=== PATIENT | male | born 1965 | race Caucasian/White ===

== ENCOUNTER 2020-12-25 12:26 | Outpatient (REF) | payer BC, SELFPAY ==
[2020-12-25 14:21] LABS: Alanine Aminotransferase 15 U/L (0-40); Alkaline Phosphatase 72 U/L (39-117); Anion Gap 14 (12-20); Aspartate Amino Transferase 14 U/L (5-37); Bilirubin Total 1.1 mg/dL (0.0-1.0); Blood Urea Nitrogen 15 mg/dL (9-16); Calcium 10.2 mg/dL (8.4-10.2); Carbon Dioxide 25 mmol/L (22-29); Chloride 101 mmol/L (96-108); Estimated Glomerular Filt Rate > 60; Glucose Random 91 mg/dL (60-115); Potassium 4.4 mmol/L (3.3-5.1); Sodium 136 mmol/L (135-145); Total Protein 7.8 g/dL (6.5-8.0)
[2020-12-25 14:44] LABS: Free T4 (Free Thyroxine) 1.03 ng/dL (0.71-1.85); Thyroid Stimulating Hormone 1.27 uIU/mL (0.32-4.0)
== END 2020-12-25 12:27 | disposition home or self-care (01) ==
LOC: HO.HMGCLDS 12:26
PROVIDERS: PCP Internal Medicine; Visit Provider Registered Nurse
DX: Z79.899 Other long term (current) drug therapy (principal)
CPT/HCPCS: 36415; 80053; 80178; 84439; 84443

== ENCOUNTER 2021-04-08 11:20 | Outpatient (REF) | payer BC, SELFPAY ==
[2021-04-08 14:20] LABS: Lithium 0.38 mmol/L (0.60-1.20)
[2021-04-08 14:38] LABS: Alanine Aminotransferase 12 U/L (0-40); Albumin Level 4.5 g/dL (3.5-5.0); Alkaline Phosphatase 70 U/L (39-117); Anion Gap 12 (12-20); Aspartate Amino Transferase 12 U/L (5-37); Bilirubin Total 0.6 mg/dL (0.0-1.0); Blood Urea Nitrogen 11 mg/dL (9-16); Calcium 9.9 mg/dL (8.4-10.2); Carbon Dioxide 26 mmol/L (22-29); Chloride 103 mmol/L (96-108); Estimated Glomerular Filt Rate > 60; Glucose Random 96 mg/dL (60-115); Potassium 4.2 mmol/L (3.3-5.1); Sodium 137 mmol/L (135-145); Total Protein 7.4 g/dL (6.5-8.0)
[2021-04-08 14:47] LABS: Free T4 (Free Thyroxine) 0.93 ng/dL (0.71-1.85); TSH reflex Free T4 1.73 uIU/mL (0.32-4.0)
== END 2021-04-08 11:21 | disposition home or self-care (01) ==
LOC: HO.HMGCLR 11:20
PROVIDERS: PCP Internal Medicine; Visit Provider Registered Nurse
DX: Z79.899 Other long term (current) drug therapy (principal)
CPT/HCPCS: 36415; 80053; 80178; 84439; 84443

== ENCOUNTER 2021-08-04 13:49 | Outpatient (REF) | payer BC, SELFPAY ==
[2021-08-04 16:46] LABS: Lithium 0.42 mmol/L (0.60-1.20)
[2021-08-04 16:51] LABS: Anion Gap 15 (12-20); Blood Urea Nitrogen 13 mg/dL (9-16); Calcium 10.3 mg/dL (8.4-10.2); Carbon Dioxide 24 mmol/L (22-29); Chloride 103 mmol/L (96-108); Estimated Glomerular Filt Rate > 60; Glucose Random 97 mg/dL (60-115); Potassium 4.4 mmol/L (3.3-5.1); Sodium 138 mmol/L (135-145)
[2021-08-04 17:14] LABS: T4 Thyroxine 7.1 ug/dL (4.5-12.0); Thyroid Stimulating Hormone 1.55 uIU/mL (0.32-4.0)
== END 2021-08-04 13:50 | disposition home or self-care (01) ==
LOC: HO.HMGCLR 13:49
PROVIDERS: PCP Internal Medicine; Visit Provider Registered Nurse
DX: Z79.899 Other long term (current) drug therapy (principal)
CPT/HCPCS: 36415; 80048; 80178; 84436; 84443

== ENCOUNTER 2022-02-21 10:18 | Outpatient (REF) | payer BC, SELFPAY ==
[2022-02-21 11:46] LABS: Lithium 0.43 mmol/L (0.60-1.20)
[2022-02-21 11:59] LABS: Alanine Aminotransferase 14 U/L (0-40); Albumin Level 4.7 g/dL (3.5-5.0); Alkaline Phosphatase 76 U/L (39-117); Anion Gap 15 (12-20); Aspartate Amino Transferase 12 U/L (5-37); Bilirubin Total 0.4 mg/dL (0.0-1.0); Blood Urea Nitrogen 12 mg/dL (9-16); Calcium 10.2 mg/dL (8.4-10.2); Carbon Dioxide 26 mmol/L (22-29); Chloride 103 mmol/L (96-108); Cholesterol 251 mg/dL; Estimated Glomerular Filt Rate > 60; Glucose Random 112 mg/dL (60-115); HDL Cholesterol 45 mg/dL; LDL Cholesterol Calculated 165 mg/dl; Potassium 4.5 mmol/L (3.3-5.1); Sodium 139 mmol/L (135-145); Total Protein 7.4 g/dL (6.5-8.0); Triglycerides 209 mg/dL
[2022-02-21 12:04] LABS: Estimated Average Glucose 111 mg/dL; Hemoglobin A1c % 5.5 %
[2022-02-21 12:10] LABS: TSH reflex Free T4 1.55 uIU/mL (0.32-4.0)
== END 2022-02-21 10:19 | disposition home or self-care (01) ==
LOC: HO.HMGCLDS 10:18
PROVIDERS: PCP Internal Medicine; Visit Provider Registered Nurse
DX: F31.2 Bipolar disorder, current episode manic severe with psychotic features (principal)
CPT/HCPCS: 36415; 80053; 80061; 80178; 83036; 84443

== ENCOUNTER 2022-06-22 11:06 | Outpatient (REF) | payer BC, SELFPAY | END 2022-06-22 11:07 | disposition home or self-care (01) | LOC: HO.HMGCLDS 11:06 | PROVIDERS: Visit Provider Registered Nurse | DX: F31.12 Bipolar disorder, current episode manic without psychotic features, moderate (principal); Z79.899 Other long term (current) drug therapy | CPT/HCPCS: 36415; 80178 ==

== ENCOUNTER 2022-07-12 08:56 | Outpatient (REF) | payer BC, SELFPAY ==
[2022-07-12 12:15] LABS: Lithium 0.22 mmol/L (0.60-1.20)
[2022-07-12 12:25] LABS: Alanine Aminotransferase 14 U/L (0-40); Albumin Level 4.9 g/dL (3.5-5.0); Alkaline Phosphatase 67 U/L (39-117); Anion Gap 14 (12-20); Aspartate Amino Transferase 18 U/L (5-37); Bilirubin Total 0.9 mg/dL (0.0-1.0); Blood Urea Nitrogen 12 mg/dL (9-16); Calcium 9.8 mg/dL (8.4-10.2); Carbon Dioxide 24 mmol/L (22-29); Chloride 106 mmol/L (96-108); Estimated Glomerular Filt Rate > 60; Glucose Random 115 mg/dL (60-115); Potassium 4.4 mmol/L (3.3-5.1); Sodium 140 mmol/L (135-145); Total Protein 7.2 g/dL (6.5-8.0)
[2022-07-12 12:33] LABS: TSH reflex Free T4 0.62 uIU/mL (0.32-4.0)
== END 2022-07-12 08:57 | disposition home or self-care (01) ==
LOC: HO.HMGCLR 08:56
PROVIDERS: PCP Internal Medicine; Visit Provider Registered Nurse
DX: Z13.89 Encounter for screening for other disorder (principal)
CPT/HCPCS: 36415; 80053; 80178; 84443

== ENCOUNTER 2022-07-28 22:12 | Inpatient (IN) | payer BC, SELFPAY ==
--- NOTE | ~2022-07-28 | XR_ITS ---
EXAMINATION: XR CHEST CLINICAL INFORMATION: Overdose. COMPARISON: None available. TECHNIQUE: 2 views of the chest were obtained. FINDINGS: Normal appearance of the cardiomediastinal silhouette. Partially imaged cervical fusion hardware. No focal airspace opacity, pleural effusion or pneumothorax. No acute osseous abnormalities. The visualized upper abdomen is within normal limits. XR/XR chest 2V IMPRESSION: No acute cardiopulmonary findings.
--- NOTE | 2022-07-28 22:27 | ECG_ITS ---
Test Reason : od Blood Pressure : / mmHG Vent. Rate : 120 BPM Atrial Rate : 120 BPM P-R Int : 166 ms QRS Dur : 104 ms QT Int : 326 ms P-R-T Axes : 035 048 050 degrees QTc Int : 460 ms Sinus tachycardia Possible Left atrial enlargement Incomplete right bundle branch block Borderline ECG When compared with ECG of 28-JUL-2022 22:24, No significant changes seen Referred By: Tay Marroquin Electronically Signed By:CAROLINA WEINBERG MD
--- NOTE | 2022-07-28 22:27 | ECG_ITS ---
Test Reason : od Blood Pressure : / mmHG Vent. Rate : 121 BPM Atrial Rate : 121 BPM P-R Int : 168 ms QRS Dur : 106 ms QT Int : 318 ms P-R-T Axes : 146 139 133 degrees QTc Int : 451 ms Suspect limb lead reversal, interpretation assumes no reversal Sinus tachycardia Incomplete right bundle branch block Left posterior fascicular block Nonspecific ST abnormality Abnormal ECG When compared with ECG of 18-MAY-2019 05:31, Vent. rate has increased Referred By: Tay Marroquin Electronically Signed By:CAROLINA WEINBERG MD
[2022-07-28 22:28] VITALS: BP 134/87; PULSE 129; RESP 20; TEMP 36.3; O2SAT 98; BMI 25.4
--- NOTE | 2022-07-28 22:28 | ED.OVERDOSE ---
HPI - Overdose General Chief Complaint: Overdose Stated Complaint: OD OF SEROQUEL,DROWSEY,GARB SPEECH PER EMS Time Seen by Provider: 07/28/22 22:26 Source: patient and EMS Mode of arrival: ambulatory Limitations: no limitations and altered mental status History of Present Illness HPI Narrative: 57-year-old male has been off his medications for the past month presents to the emergency depart complaining of not being able to sleep so he took extra doses of his Seroquel. He has been off his medications for the past month he states he just did not feel the [place] he denies SI he denies trying to hurt himself he denies fevers chills cough nausea vomiting or diarrhea. complaint: accidental overdose Related Data Allergies Allergy/AdvReac Type Severity Reaction Status Date / Time No Known Allergies Allergy Unverified 07/28/22 22:28 [No Known Allergies*] Review of Systems Review of Systems: Review of systems: General: Patient denies any fever chills recent illness or falls Musculoskeletal: Denies back pain or body aches or other injuries HEENT: denies headache, runny nose, ear pain Respiratory: denies shortness of breath, cough Cardiovascular: no chest pain or palpitations : denies dysuria, frequency Abdomen: no nausea vomiting denies abdominal pain Extremities: no swelling, no pain Skin: no diaphoresis Yes all other systems are reviewed and are negative PMFSH Social History Social History Advance Directives: No Advance Directives Information Provided: No Physical Exam Vital Signs: Vital Signs: Last Vital Signs Temp 97.4 F 07/28/22 22:28 Pulse 129 H 07/28/22 22:28 Resp 20 07/28/22 22:28 BP 134/87 07/28/22 22:28 Pulse Ox 98 07/28/22 22:28 O2 Del Method Room Air 07/28/22 22:28 BMI result Body Mass Index 25.4 Neurological exam: CN II- XII tested. Patient is alert and oriented to person place and time. Patient has no dysphagia or dysarthia, denies good vision in all four vision mauricio no nystagmus on exam, good strength to upper and lower extremities with normal reflexes to brachioradialis, wrist, patella and achilles. Negative romberg, good finger to nose and heel to russell. General: Well-appearing well-nourished in no signs of distress HEENT: Normocephalic atraumatic Neck: No signs of JVD, no masses no tenderness or lymphadenopathy Cardiovascular: Regular rate and rhythm Respiratory: Clear to auscultation bilaterally Abdomen: Soft nontender no masses Extremities: Normal pedal pulses no signs of edema Skin: Dry warm no rashes Back: No tenderness full ROM Medications Administered Discontinued Medications Generic Name Dose Route Start Last Admin Trade Name Juan Diegoq PRN Reason Stop Dose Admin Sodium Chloride 1,000 mls @ 999 mls/hr 07/28/22 22:30 07/28/22 22:35 Ns IV 07/28/22 23:30 999 mls/hr .Q1H1M UKMAR Administration Medical Decision Making Medical Decision Making [facility] Narrative: I will send labs for overdose including alcohol salicylate Tylenol LFTs and lipase. I will check electrolytes as well make sure the patient is not anemic the patient's fluids he is tachycardic on arrival. [id number] patient family stone at the bedside the has been on his medications for the past 3 weeks after 1 month mix-up he was de compensating after this episode at this time the patient took the medications to hurt himself they were concerned about suicidality he has been having some issues for the past several weeks hallucinating during their concern for safety. Differential Diagnosis Differential Diagnoses: The differential diagnosis associated with the presentation includes Overdose salicylate overdose Tylenol overdose alcohol intoxication patient does have slurred speech is very unlikely a CV is patient has normal neuro exam concern for rhabdomyolysis unknown how long patient has been asked Lab Data [facility] Lab Attestation statement: I reviewed the patient's lab results. 07/28/22 22:43 07/28/22 22:43 Labs: Lab Results 07/28/22 07/28/22 07/28/22 Range/Units 22:43 22:43 22:43 WBC 13.7 H (4.8-10.8) X10*3/uL RBC 4.32 L (4.60-5.80) X10*6/uL Hgb 13.1 L (14.0-18.0) g/dl Hct 38.9 L (42.0-52.0) % MCV 90.0 (80.0-98.0) fL MCH 30.3 (27.0-33.0) pg MCHC 33.7 (31.0-36.0) g/dl RDW 12.6 (11.0-16.0) % Plt Count 260 (160-400) X10*3/uL MPV 8.8 L (9.4-12.4) fL Immature Gran % (Auto) 0.4 (0.0-0.4) % Neut % (Auto) 67.5 (45-73) % Lymph % (Auto) 22.8 (20-40) % [place] % (Auto) 8.3 (2-11) % Eos % (Auto) 0.7 (0-4) % Baso % (Auto) 0.3 (0-2) % Lymph # (Auto) 3.1 (1.2-4.9) X10*3/uL [place] # (Auto) 1.1 (0.1-1.2) X10*3/uL Eos # (Auto) 0.1 (0.0-0.4) X10*3/uL Baso # (Auto) 0.0 (0.0-0.2) X10*3/uL Abs Immat Gran (auto) 0.06 H (0.00-0.03) X10*3/uL Absolute Neuts (auto) 9.2 H (2.0-8.3) x10*3/uL Absolute Nucleated RBC 0.000 (0.0-0.012) X10*3/uL Nucleated RBC % (auto) 0.0 (0.0-0.2) /100WBC Sodium 135 (135-145) mmol/L Potassium 3.4 D (3.3-5.1) mmol/L Chloride 105 (96-108) mmol/L Carbon Dioxide 20 L (22-29) mmol/L Anion Gap 13 (12-20) BUN 13 (9-16) mg/dL Creatinine 0.94 (0.5-1.4) mg/dL Estim Creat Clear Calc 88.7 Estimated GFR > 60 Random Glucose 141 H (60-115) mg/dL Lactic Acid (0.5-2.0) mmol/L Calcium 8.7 D (8.4-10.2) mg/dL Total Bilirubin 0.5 (0.0-1.0) mg/dL Direct Bilirubin 0.2 (0.0-0.5) mg/dL AST 13 (5-37) U/L ALT 13 (0-40) U/L Alkaline Phosphatase 57 (39-117) U/L Total Creatine Kinase 226 H (38-174) U/L Troponin I High Sens 5.9 (<3.5-35.0) ng/L Total Protein 6.0 L (6.5-8.0) g/dL Albumin 4.1 (3.5-5.0) g/dL Lipase 26 (8-78) U/L Salicylates < 5.0 L (15-30) mg/dL Acetaminophen < 17 (<30) mcg/mL Ethyl Alcohol mg/dL COVID-19 ([facility]) (Negative) COVID-19 Clin Com 07/28/22 07/28/22 07/28/22 Range/Units 22:43 22:43 22:43 WBC (4.8-10.8) X10*3/uL RBC (4.60-5.80) X10*6/uL Hgb (14.0-18.0) g/dl Hct (42.0-52.0) % MCV (80.0-98.0) fL MCH (27.0-33.0) pg MCHC (31.0-36.0) g/dl RDW (11.0-16.0) % Plt Count (160-400) X10*3/uL MPV (9.4-12.4) fL Immature Gran % (Auto) (0.0-0.4) % Neut % (Auto) (45-73) % Lymph % (Auto) (20-40) % [place] % (Auto) (2-11) % Eos % (Auto) (0-4) % Baso % (Auto) (0-2) % Lymph # (Auto) (1.2-4.9) X10*3/uL [place] # (Auto) (0.1-1.2) X10*3/uL Eos # (Auto) (0.0-0.4) X10*3/uL Baso # (Auto) (0.0-0.2) X10*3/uL Abs Immat Gran (auto) (0.00-0.03) X10*3/uL Absolute Neuts (auto) (2.0-8.3) x10*3/uL Absolute Nucleated RBC (0.0-0.012) X10*3/uL Nucleated RBC % (auto) (0.0-0.2) /100WBC Sodium (135-145) mmol/L Potassium (3.3-5.1) mmol/L Chloride (96-108) mmol/L Carbon Dioxide (22-29) mmol/L Anion Gap (12-20) BUN (9-16) mg/dL Creatinine (0.5-1.4) mg/dL Estim Creat Clear Calc Estimated GFR Random Glucose (60-115) mg/dL Lactic Acid 0.9 (0.5-2.0) mmol/L Calcium (8.4-10.2) mg/dL Total Bilirubin (0.0-1.0) mg/dL Direct Bilirubin (0.0-0.5) mg/dL AST (5-37) U/L ALT (0-40) U/L Alkaline Phosphatase (39-117) U/L Total Creatine Kinase (38-174) U/L Troponin I High Sens (<3.5-35.0) ng/L Total Protein (6.5-8.0) g/dL Albumin (3.5-5.0) g/dL Lipase (8-78) U/L Salicylates (15-30) mg/dL Acetaminophen (<30) mcg/mL Ethyl Alcohol < 10 mg/dL COVID-19 ([facility]) Negative (Negative) COVID-19 Clin Com See Note Independent Interpretation I performed an independent interpretation of an: EKG Interpretation: Rate 98 normal sinus rhythm no change from previous no signs of ischemia Independent Historian Clinical information obtained from an independent historian. History obtained from or confirmed by: Spouse and Other His girlfriend and daughter at the bedside External Record Review No previous visits here Discharge Plan Discharge Clinical Impression: Drug overdose, Suicide attempt by multiple drug overdose Patient Disposition: Still a Patient
[2022-07-28] MEDS: 0.9 % Sodium Chloride 1,000 ML 999 ML IV (22:35)
[2022-07-28 22:50] LABS: MANUAL DIFF FLAG NO
--- NOTE | 2022-07-28 22:53 | PC.NURSE ---
Addendum entered by Roxana Parker RN 07/28/22 22:54: CHANGED INTO HOSPITAL ATTIRE PER FACILITY PROTOCOL. SINUS TACH ON MONITOR. Original Note: SITTER AT BEDSIDE FOR CONSTANT OBS
[2022-07-28 23:03] LABS: Basophils Percent Auto 0.3 % (0-2); Eosinophils Absolute Auto 0.1 X10*3/uL (0.0-0.4); Eosinophils Percent Auto 0.7 % (0-4); Hematocrit 38.9 % (42.0-52.0); Hemoglobin 13.1 g/dl (14.0-18.0); Imm Gran Abs Auto 0.06 X10*3/uL (0.00-0.03); Imm Gran Pct Auto 0.4 % (0.0-0.4); Lymphocytes Absolute Auto 3.1 X10*3/uL (1.2-4.9); Lymphocytes Percent Auto 22.8 % (20-40); Mean Corpuscular HGB Conc 33.7 g/dl (31.0-36.0); Mean Corpuscular Hemoglobin 30.3 pg (27.0-33.0); Mean Platelet Volume 8.8 fL (9.4-12.4); Monocytes Absolute Auto 1.1 X10*3/uL (0.1-1.2); Monocytes Percent Auto 8.3 % (2-11); Neutrophils Absolute Auto 9.2 x10*3/uL (2.0-8.3); Neutrophils Percent Auto 67.5 % (45-73); Platelet Count 260 X10*3/uL (160-400); Red Blood Count 4.32 X10*6/uL (4.60-5.80); Red Cell Distribution Width 12.6 % (11.0-16.0); White Blood Count 13.7 X10*3/uL (4.8-10.8)
[2022-07-28 23:04] LABS: Lactic Acid 0.9 mmol/L (0.5-2.0)
[2022-07-28 23:09] LABS: Ethanol < 10 mg/dL
[2022-07-28 23:11] LABS: IDNOW Serial# 9DB6401D
[2022-07-28 23:12] LABS: COVID-19 Test Negative (Negative)
[2022-07-28 23:14] LABS: Acetaminophen LAB < 17 mcg/mL (<30); Alanine Aminotransferase 13 U/L (0-40); Albumin Level 4.1 g/dL (3.5-5.0); Alkaline Phosphatase 57 U/L (39-117); Anion Gap 13 (12-20); Aspartate Amino Transferase 13 U/L (5-37); Bilirubin Direct 0.2 mg/dL (0.0-0.5); Bilirubin Total 0.5 mg/dL (0.0-1.0); Blood Urea Nitrogen 13 mg/dL (9-16); Calcium 8.7 mg/dL (8.4-10.2); Carbon Dioxide 20 mmol/L (22-29); Chloride 105 mmol/L (96-108); Creatinine Clr Calc Pharmacy 88.7; Estimated Glomerular Filt Rate > 60; Glucose Random 141 mg/dL (60-115); Lipase 26 U/L (8-78); Potassium 3.4 mmol/L (3.3-5.1); Salicylate < 5.0 mg/dL (15-30); Sodium 135 mmol/L (135-145)
[2022-07-28 23:16] LABS: Troponin-I High Sensitivity 5.9 ng/L (<3.5-35.0)
--- NOTE | 2022-07-28 23:17 | PC.NURSE ---
assumed care of patient at 2315 - pt resting comfortably on stretcher. on monitor worker. ekg done, labs sent. pt awake, alert and oriented. denies suicide attempt. states he just wanted to be asleep . sitter in place. will CTM
[2022-07-28 23:43] VITALS: BP 116/75; PULSE 98; RESP 13; O2SAT 99
--- NOTE | 2022-07-29 00:18 | MHC.EDTECH ---
PT belongings placed in [place] by erich
--- NOTE | 2022-07-29 00:39 | PC.NURSE ---
pt ambulatory to and from bathroom with unsteady gait with this RN assisting. urine sample obtained. pt laying back on stretcher. will CTM
[2022-07-29 00:45] LABS: Appearance Urine Clear; Color Urine Yellow; Glucose Urine UA Negative (Negative); Leukocyte Esterase Urine Negative (Negative); Nitrite Urine Negative (Negative); Urine Blood Negative (Negative); Urine Ketones Trace mg/dL (Negative); Urine Protein Negative (Neg-Trace)
[2022-07-29 00:55] LABS: Amphetamine Screen Urine Not Detected (Not Detect); Barbiturates, Urine Not Detected (Not Detect); Benzodiazepines Screen Urine Not Detected (Not Detect); Cannabinoid Screen Urine POSITIVE (Not Detect); Cocaine Screen Urine Not Detected (Not Detect); Fentanyl, urine Not Detected (Not Detect); Opiate Screen Urine Not Detected (Not Detect); Phencyclidine Screen Urine Not Detected (Not Detect)
[2022-07-29 02:16] VITALS: BP 102/75; PULSE 70; RESP 12; TEMP 36.4; O2SAT 98
[2022-07-29 04:45] VITALS: BP 101/65; PULSE 69; RESP 17; O2SAT 99
[2022-07-29 08:17] LABS: Lithium 0.42 mmol/L (0.60-1.20)
--- NOTE | 2022-07-29 12:14 | MHC.CARE ---
Patient is in an inpatient psychiatric bed search. Seen by CARE, at this time is a voluntary admission.
[2022-07-29 16:00] VITALS: BP 134/84; PULSE 96; RESP 16; TEMP 36.5; O2SAT 97
[2022-07-29] MEDS: Acetaminophen 325 MG TABLET 650 MG PO (18:48)
--- NOTE | 2022-07-29 19:23 | PC.ADMIT ---
Pt is a 57 year old male who presents to from [facility] ED at approx 18:00 on a cv status. Pt is covid- tox screen + for THC. Per chart review, pt had an intentional over-dose of Seroquel. Pt has hopeless thoughts, denies SI thoughts. Pt is aware he has bipolar and has hx struggled with both nelson and depression. During admit, pt reported high anxiety and depression. Pt reports hx of trauma. Pt reported he ran out of his medications which set him down a bad path. Pt denies any pain. Pt denied SI/HI/AH/VH. Provider called and notified of admission. Start treatment plan and monitor for safety.
[2022-07-29] MEDS: Lithium Carbonate ER 300 MG TABLET.ER 600 MG PO (20:03)
[2022-07-30 07:02] LABS: MANUAL DIFF FLAG NO
[2022-07-30 07:08] LABS: Basophils Absolute Auto 0.1 X10*3/uL (0.0-0.2); Basophils Percent Auto 0.4 % (0-2); Eosinophils Absolute Auto 0.4 X10*3/uL (0.0-0.4); Eosinophils Percent Auto 3.5 % (0-4); Hematocrit 42.9 % (42.0-52.0); Hemoglobin 14.3 g/dl (14.0-18.0); Imm Gran Abs Auto 0.03 X10*3/uL (0.00-0.03); Imm Gran Pct Auto 0.3 % (0.0-0.4); Lymphocytes Absolute Auto 3.7 X10*3/uL (1.2-4.9); Lymphocytes Percent Auto 30.9 % (20-40); Mean Corpuscular HGB Conc 33.3 g/dl (31.0-36.0); Mean Corpuscular Hemoglobin 30.2 pg (27.0-33.0); Mean Corpuscular Volume 90.5 fL (80.0-98.0); Mean Platelet Volume 8.8 fL (9.4-12.4); Monocytes Percent Auto 8.4 % (2-11); Neutrophils Absolute Auto 6.7 x10*3/uL (2.0-8.3); Neutrophils Percent Auto 56.5 % (45-73); Platelet Count 292 X10*3/uL (160-400); Red Blood Count 4.74 X10*6/uL (4.60-5.80); Red Cell Distribution Width 13.1 % (11.0-16.0); White Blood Count 11.8 X10*3/uL (4.8-10.8)
[2022-07-30 07:30] LABS: Cholesterol 170 mg/dL; HDL Cholesterol 41 mg/dL; LDL Cholesterol Calculated 106 mg/dl; Triglycerides 119 mg/dL
[2022-07-30 07:47] LABS: Estimated Average Glucose 114 mg/dL; Hemoglobin A1c % 5.6 %
[2022-07-30 08:25] VITALS: BP 112/74; PULSE 70; RESP 16; TEMP 36.9; O2SAT 96
[2022-07-30] MEDS: lisinopriL 10 MG TABLET PO (08:28)
[2022-07-30] MEDS: Acetaminophen 325 MG TABLET 650 MG PO ×2 (08:28→20:10)
--- NOTE | 2022-07-30 14:38 | HO.PSYADMNOT ---
HPI Date of Service: 07/30/22 Chief Complaint: Disorganized Sources of Information: patient interviewed, chart reviewed and crisis/core team assessment reviewed HPI Subjective Notes: [place] Warning and Conditional Voluntary Narrative: Patient is a 57-year-old male with history of bipolar disorder, alcoholism in sustained remission who presents for after taking too much Seroquel and the face of manic episode. Patient reports that he was well treated on lithium. Unfortunately there was a change in his clinic and he was switching to a new prescriber and was without lithium for a month which resulted in him becoming manic, not sleeping, acting erratically, starting and stopping projects, and with poor self-control. He eventually got a new provider and was restarted on lithium which he has been taking for the past few weeks however he remained manic. He said he had left over Seroquel 50 mg capsules and because these were prescribed to help him sleep in the face of a manic episode, he took 10 of them. Patient reports his daughter was worried it was a suicide attempt the patient denies any SI at all. He does agree however that he may have been saying erratic things while manic and can understand why she was scared. Police were called (it seems while patient was fixing or breaking something in the yard) and took him to the hospital. Patient says he is feeling much better. He says he knows he should not taking as much Seroquel (500 mg) as he did however he thinks this is what finally jolted him out of his manic episode. Patient says he slept last night for the 1st time in a while and is starting to feel pretty close to his regular self. Patient denies any AVH, SI/HI; denies any substance abuse and has been sober for 3 years. Patient wants to continue on lithium medication. Past Psychiatric History: History of bipolar disorder treated with lithium History of detox history of psychiatric admission Medical Evaluation Reviewed: Hospitalist Александр Tiradoing [facility] Medical History (Updated 07/31/22 @ 17:14 by Hector Farias MD) Bipolar 1 disorder Family History: Deferred Social History: Lives with his girlfriend Has a daughter Substance History: Alcohol dependence history; sober for 3 years Trauma History: Deferred Diagnostics Vital Signs (24Hr): Vital Signs - 24 hr 07/29/22 16:00 07/30/22 08:25 Temperature 97.7 F 98.4 F Pulse Rate 96 70 Respiratory Rate 16 16 Blood Pressure 134/84 112/74 Pulse Oximetry 97 96 Oxygen Delivery Method Room Air Room Air BMI result Body Mass Index 25.4 Labs 07/30/22 06:39 07/28/22 22:43 Labs: Laboratory Results - last 48 hr 07/28/22 07/28/22 07/28/22 22:43 22:43 22:43 WBC 13.7 H RBC 4.32 L Hgb 13.1 L Hct 38.9 L MCV 90.0 MCH 30.3 MCHC 33.7 RDW 12.6 Plt Count 260 MPV 8.8 L Immature Gran % (Auto) 0.4 Neut % (Auto) 67.5 Lymph % (Auto) 22.8 [place] % (Auto) 8.3 Eos % (Auto) 0.7 Baso % (Auto) 0.3 Lymph # (Auto) 3.1 [place] # (Auto) 1.1 Eos # (Auto) 0.1 Baso # (Auto) 0.0 Abs Immat Gran (auto) 0.06 H Absolute Neuts (auto) 9.2 H Absolute Nucleated RBC 0.000 Nucleated RBC % (auto) 0.0 Sodium 135 Potassium 3.4 D Chloride 105 Carbon Dioxide 20 L Anion Gap 13 BUN 13 Creatinine 0.94 Estim Creat Clear Calc 88.7 Estimated GFR > 60 Random Glucose 141 H Estimat Average Glucose Hemoglobin A1c % Lactic Acid Calcium 8.7 D Total Bilirubin 0.5 Direct Bilirubin 0.2 AST 13 ALT 13 Alkaline Phosphatase 57 Total Creatine Kinase 226 H Troponin I High Sens 5.9 Total Protein 6.0 L Albumin 4.1 Triglycerides Cholesterol LDL Cholesterol, Calc HDL Cholesterol Lipase 26 Urine Color Urine Appearance Urine pH Ur Specific [place] Urine Protein Urine Glucose (UA) Urine Ketones Urine Blood Urine Nitrite Ur Leukocyte Esterase Salicylates < 5.0 L Urine Opiates Screen Urine Fentanyl Screen Acetaminophen < 17 Ur Barbiturates Screen Ur Phencyclidine Scrn Ur Amphetamines Screen U Benzodiazepines Scrn [place] Urine Cocaine Screen U Marijuana (THC) Screen Ethyl Alcohol COVID-19 ([facility]) COVID-19 Clin Com 07/28/22 07/28/22 07/28/22 22:43 22:43 22:43 WBC RBC Hgb Hct MCV MCH MCHC RDW Plt Count MPV Immature Gran % (Auto) Neut % (Auto) Lymph % (Auto) [place] % (Auto) Eos % (Auto) Baso % (Auto) Lymph # (Auto) [place] # (Auto) Eos # (Auto) Baso # (Auto) Abs Immat Gran (auto) Absolute Neuts (auto) Absolute Nucleated RBC Nucleated RBC % (auto) Sodium Potassium Chloride Carbon Dioxide Anion Gap BUN Creatinine Estim Creat Clear Calc Estimated GFR Random Glucose Estimat Average Glucose Hemoglobin A1c % Lactic Acid 0.9 Calcium Total Bilirubin Direct Bilirubin AST ALT Alkaline Phosphatase Total Creatine Kinase Troponin I High Sens Total Protein Albumin Triglycerides Cholesterol LDL Cholesterol, Calc HDL Cholesterol Lipase Urine Color Urine Appearance Urine pH Ur Specific [place] Urine Protein Urine Glucose (UA) Urine Ketones Urine Blood Urine Nitrite Ur Leukocyte Esterase Salicylates Urine Opiates Screen Urine Fentanyl Screen Acetaminophen Ur Barbiturates Screen Ur Phencyclidine Scrn Ur Amphetamines Screen U Benzodiazepines Scrn [place] Urine Cocaine Screen U Marijuana (THC) Screen Ethyl Alcohol < 10 COVID-19 ([facility]) Negative COVID-19 Clin Com See Note 07/29/22 07/29/22 07/29/22 00:37 00:37 08:03 WBC RBC Hgb Hct MCV MCH MCHC RDW Plt Count MPV Immature Gran % (Auto) Neut % (Auto) Lymph % (Auto) [place] % (Auto) Eos % (Auto) Baso % (Auto) Lymph # (Auto) [place] # (Auto) Eos # (Auto) Baso # (Auto) Abs Immat Gran (auto) Absolute Neuts (auto) Absolute Nucleated RBC Nucleated RBC % (auto) Sodium Potassium Chloride Carbon Dioxide Anion Gap BUN Creatinine Estim Creat Clear Calc Estimated GFR Random Glucose Estimat Average Glucose Hemoglobin A1c % Lactic Acid Calcium Total Bilirubin Direct Bilirubin AST ALT Alkaline Phosphatase Total Creatine Kinase Troponin I High Sens Total Protein Albumin Triglycerides Cholesterol LDL Cholesterol, Calc HDL Cholesterol Lipase Urine Color Yellow Urine Appearance Clear Urine pH 6.0 Ur Specific [place] 1.010 Urine Protein Negative Urine Glucose (UA) Negative Urine Ketones Trace Urine Blood Negative Urine Nitrite Negative Ur Leukocyte Esterase Negative Salicylates Urine Opiates Screen Not Detected Urine Fentanyl Screen Not Detected Acetaminophen Ur Barbiturates Screen Not Detected Ur Phencyclidine Scrn Not Detected Ur Amphetamines Screen Not Detected U Benzodiazepines Scrn Not Detected [place] 0.42 L Urine Cocaine Screen Not Detected U Marijuana (THC) Screen POSITIVE H Ethyl Alcohol COVID-19 ([facility]) COVID-19 [facility] Com 07/29/22 07/30/22 07/30/22 13:42 06:39 06:39 WBC 11.8 H RBC 4.74 Hgb 14.3 Hct 42.9 MCV 90.5 MCH 30.2 MCHC 33.3 RDW 13.1 Plt Count 292 MPV 8.8 L Immature Gran % (Auto) 0.3 Neut % (Auto) 56.5 Lymph % (Auto) 30.9 [place] % (Auto) 8.4 Eos % (Auto) 3.5 Baso % (Auto) 0.4 Lymph # (Auto) 3.7 [place] # (Auto) 1.0 Eos # (Auto) 0.4 Baso # (Auto) 0.1 Abs Immat Gran (auto) 0.03 Absolute Neuts (auto) 6.7 Absolute Nucleated RBC 0.000 Nucleated RBC % (auto) 0.0 Sodium Potassium Chloride Carbon Dioxide Anion Gap BUN Creatinine Estim Creat Clear Calc Estimated GFR Random Glucose Estimat Average Glucose 114 Hemoglobin A1c % 5.6 Lactic Acid Calcium Total Bilirubin Direct Bilirubin AST ALT Alkaline Phosphatase Total Creatine Kinase 151 Troponin I High Sens Total Protein Albumin Triglycerides Cholesterol LDL Cholesterol, Calc HDL Cholesterol Lipase Urine Color Urine Appearance Urine pH Ur Specific [place] Urine Protein Urine Glucose (UA) Urine Ketones Urine Blood Urine Nitrite Ur Leukocyte Esterase Salicylates Urine Opiates Screen Urine Fentanyl Screen Acetaminophen Ur Barbiturates Screen Ur Phencyclidine Scrn Ur Amphetamines Screen U Benzodiazepines Scrn [place] Urine Cocaine Screen U Marijuana (THC) Screen Ethyl Alcohol COVID-19 ([facility]) COVID-19 Clin Com 07/30/22 06:39 WBC RBC Hgb Hct MCV MCH MCHC RDW Plt Count MPV Immature Gran % (Auto) Neut % (Auto) Lymph % (Auto) [place] % (Auto) Eos % (Auto) Baso % (Auto) Lymph # (Auto) [place] # (Auto) Eos # (Auto) Baso # (Auto) Abs Immat Gran (auto) Absolute Neuts (auto) Absolute Nucleated RBC Nucleated RBC % (auto) Sodium Potassium Chloride Carbon Dioxide Anion Gap BUN Creatinine Estim Creat Clear Calc Estimated GFR Random Glucose Estimat Average Glucose Hemoglobin A1c % Lactic Acid Calcium Total Bilirubin Direct Bilirubin AST ALT Alkaline Phosphatase Total Creatine Kinase Troponin I High Sens Total Protein Albumin Triglycerides 119 Cholesterol 170 LDL Cholesterol, Calc 106 HDL Cholesterol 41 Lipase Urine Color Urine Appearance Urine pH Ur Specific [place] Urine Protein Urine Glucose (UA) Urine Ketones Urine Blood Urine Nitrite Ur Leukocyte Esterase Salicylates Urine Opiates Screen Urine Fentanyl Screen Acetaminophen Ur Barbiturates Screen Ur Phencyclidine Scrn Ur Amphetamines Screen U Benzodiazepines Scrn [place] Urine Cocaine Screen U Marijuana (THC) Screen Ethyl Alcohol COVID-19 ([facility]) COVID-19 Clin Com Imaging Radiology Impressions: ITS Impressions Chest X-Ray 07/28/22 23:05 IMPRESSION: No acute cardiopulmonary findings. Meds/Allergies Meds Home Medications Medication Instructions Recorded Confirmed Type lisinopril 10 1 tab PO DAILY 07/29/22 07/29/22 History mg-hydrochlorothiazide 12.5 mg tablet lithium carbonate 300 mg 600 mg PO BEDTIME 07/29/22 07/29/22 History tablet,extended release Allergies Allergies Allergy/AdvReac Type Severity Reaction Status Date / Time No Known Allergies Allergy Verified 07/29/22 06:45 [No Known Allergies*] Mental Status Exam Mental Status Exam Narrative: Pt is alert and oriented; behavior is cooperative, friendly and calm; patient is not in distress; dressed in casual attire with adequate hygiene; mood is described as okay, better and affect congruent; eye contact appropriate; Speech is normal rate, volume and prosody and not pressured; no psychomotor agitation/retardation present; thought process is organized and goal directed; Thought content is on tx; otherwise pertinent to relevant topics and without any delusional content, paranoid ideations or grandiosity; denies any SI/HI. There is no evidence of perceptual disturbance. Patients insight and judgment appear intact. Assessment & Plan Assessment & Plan (1) Bipolar 1 disorder: Status: Acute Code(s): F31.9 - Bipolar disorder, unspecified (2) Alcohol use disorder, severe, in sustained remission: Status: Acute Code(s): F10.21 - Alcohol dependence, in remission Plan Patient is a 57-year-old male with history of bipolar disorder, alcoholism in sustained remission who presents for after taking too much Seroquel and the face of manic episode. -Patient feels that he is close to his regular self after taking Seroquel; of note he took Seroquel equivalent of 500 mg and amount which for manic episode is not unreasonable; he was prescribed this medication for this type of event; patient denies that this was in any way a suicide attempt or that he has been feeling suicidal. He does agree that he may have said something that worried his daughter while acting erratically and in manic state, though he does not know what. Patient wants to continue with lithium as he said it has been helpful and well tolerated -will get collateral Plan: CV Q 15 minute checks Continue lithium 600 mg q.h.s. Currently lithium level subtherapeutic; will recheck the patient said this was home dose that has helped him remained stable Will get the collateral Patient educated on: diagnosis, medication risk/benefits and substance abuse Informed Consent: understands Reason for continued inpatient stay Substantial Risk for: rapid decompensation Statement Statement: I have reviewed the history and physical and performed a pertinent examination on my patient. No changes have occurred unless specified. If the History and Physical was not performed prior to admission, the Hospitalist's service will be consulted for completing the admission physical. Time Spent With Patient Time: Total time managing care of this patient today ____ minutes.
[2022-07-30 18:00] VITALS: BP 132/79; PULSE 72; TEMP 36.7; O2SAT 96
[2022-07-30] MEDS: Lithium Carbonate ER 300 MG TABLET.ER 600 MG PO (20:09)
[2022-07-31] MEDS: lisinopriL 10 MG TABLET PO (07:56)
[2022-07-31] MEDS: hydroCHLOROthiazide 12.5 MG TABLET PO (07:59)
[2022-07-31 08:00] VITALS: BP 141/92; PULSE 64; RESP 14; TEMP 36.1; O2SAT 98
[2022-07-31] MEDS: Acetaminophen 325 MG TABLET 650 MG PO (12:46)
--- NOTE | 2022-07-31 17:14 | P.PNPSI_ITS ---
Subjective Subjective Date of Service: 07/31/22 Reason For Visit: Disorganized Interim History: Met with patient; discussed with team Patient reports he remains in good mood; says he slept well last night. Says he again feels very much like is regular self. Patient thinks maybe he will put in a 3 day notice. Denies any complaints and has no requests tolerating medications well. Patient is appropriate with peers and staff and without any manic symptoms Mental Status Exam Mental Status Exam Narrative: Pt is alert and oriented; behavior is cooperative, friendly and calm; patient is not in distress; dressed in casual attire with adequate hygiene; mood is described as good and affect congruent; eye contact appropriate; Speech is normal rate, volume and prosody and not pressured; no psychomotor agitation/retardation present; thought process is organized and goal directed; Thought content is on tx; otherwise pertinent to relevant topics and without any delusional content, paranoid ideations or grandiosity; denies any SI/HI. There is no evidence of perceptual disturbance. Patients insight and judgment appear intact. Diagnostics Vital Signs (24Hr): Vital Signs - 24 hr 07/30/22 18:00 07/31/22 08:00 Temperature 98.0 F 96.9 F Pulse Rate 72 64 Respiratory Rate 14 Blood Pressure 132/79 141/92 H Pulse Oximetry 96 98 Oxygen Delivery Method Room Air Room Air BMI result Body Mass Index 25.4 Labs 07/30/22 06:39 07/28/22 22:43 Labs: Laboratory Results - last 48 hr 07/30/22 07/30/22 07/30/22 06:39 06:39 06:39 WBC 11.8 H RBC 4.74 Hgb 14.3 Hct 42.9 MCV 90.5 MCH 30.2 MCHC 33.3 RDW 13.1 Plt Count 292 MPV 8.8 L Immature Gran % (Auto) 0.3 Neut % (Auto) 56.5 Lymph % (Auto) 30.9 [place] % (Auto) 8.4 Eos % (Auto) 3.5 Baso % (Auto) 0.4 Lymph # (Auto) 3.7 [place] # (Auto) 1.0 Eos # (Auto) 0.4 Baso # (Auto) 0.1 Abs Immat Gran (auto) 0.03 Absolute Neuts (auto) 6.7 Absolute Nucleated RBC 0.000 Nucleated RBC % (auto) 0.0 Estimat Average Glucose 114 Hemoglobin A1c % 5.6 Triglycerides 119 Cholesterol 170 LDL Cholesterol, Calc 106 HDL Cholesterol 41 Imaging Radiology Impressions: ITS Impressions Chest X-Ray 07/28/22 23:05 IMPRESSION: No acute cardiopulmonary findings. Medications Medications Current Medications Acetaminophen (Acetaminophen 325 Mg Tablet) 650 mg PO Q6H PRN PRN Reason: Headache/Pain Mild Scale (1-3) Last Admin: 07/31/22 12:46 Dose: 650 mg Al Hydroxide/Mg Hydroxide (Magnesium Hydrox/Alum Hydrox 30 Ml Oral.Susp) 30 ml PO Q6H PRN PRN Reason: Heartburn/Nausea Hydrochlorothiazide (Hydrochlorothiazide 12.5 Mg Tablet) 12.5 mg PO DAILY [facility] Last Admin: 07/31/22 07:59 Dose: 12.5 mg Hydroxyzine HCl (Hydroxyzine Hcl 25 Mg Tablet) 25 mg PO Q6H PRN PRN Reason: Anxiety Lisinopril (Lisinopril 10 Mg Tablet) 10 mg PO DAILY [facility] Last Admin: 07/31/22 07:56 Dose: 10 mg [place] Carbonate ([place] Carbonate Er 300 Mg Tablet.Er) 600 mg PO BEDTIME [facility] Last Admin: 07/30/22 20:09 Dose: 600 mg Magnesium Hydroxide (Milk Of Magnesia 30 Ml Oral.Susp) 30 ml PO DAILY PRN PRN Reason: Constipation Nicotine (Nicotine 21 Mg Patch.Td24) 21 mg TRANSDERMA DAILY PRN PRN Reason: smoking cessation Nicotine Polacrilex (Nicotine Polacrilex 2 Mg Gum) 4 mg BUCCAL Q2H PRN PRN Reason: Nicotine Cravings Quetiapine Fumarate (Quetiapine Fumarate 50 Mg Tablet) 50 mg PO BEDTIME PRN PRN Reason: insomnia Trazodone HCl (Trazodone Hcl 50 Mg Tablet) 50 mg PO BEDTIME MRX1 PRN PRN Reason: Insomnia Allergies Allergies Allergy/AdvReac Type Severity Reaction Status Date / Time No Known Allergies Allergy Verified 07/29/22 06:45 [No Known Allergies*] Assessment & Plan Assessment & Plan (1) Bipolar 1 disorder: Status: Acute Code(s): F31.9 - Bipolar disorder, unspecified (2) Alcohol use disorder, severe, in sustained remission: Status: Acute Code(s): F10.21 - Alcohol dependence, in remission Plan Patient is a 57-year-old male with history of bipolar disorder, alcoholism in sustained remission who presents for after taking too much Seroquel and the face of manic episode. -Patient feels that he is close to his regular self after taking Seroquel; of note he took Seroquel equivalent of 500 mg and amount which for manic episode is not unreasonable; he was prescribed this medication for this type of event; patient denies that this was in any way a suicide attempt or that he has been feeling suicidal. He does agree that he may have said something that worried his daughter while acting erratically and in manic state, though he does not know what. Patient wants to continue with lithium as he said it has been helpful and well tolerated -will get collateral Hospital course: 07/31 patient remains stable, good mood, slept well last night. Denies any SI, feels back to his regular self; gives verbal permission to talk to his daughter and girlfriend Plan: CV Q 15 minute checks Continue lithium 600 mg q.h.s. Currently lithium level subtherapeutic; will recheck the patient said this was home dose that has helped him remained stable Will get the collateral Patient educated on: diagnosis and medication risk/benefits Informed Consent: understands Reason for continued inpatient stay Substantial Risk for: stable for discharge Time Spent With Patient Time: Total time managing care of this patient today ____ minutes.
[2022-07-31 18:00] VITALS: BP 140/91; PULSE 72; RESP 18; TEMP 37.2; O2SAT 97
[2022-07-31] MEDS: Lithium Carbonate ER 300 MG TABLET.ER 600 MG PO (20:02)
[2022-08-01 06:00] VITALS: BP 137/87; PULSE 65; RESP 16; TEMP 36.5
[2022-08-01] MEDS: hydroCHLOROthiazide 12.5 MG TABLET PO (08:40)
[2022-08-01] MEDS: lisinopriL 10 MG TABLET PO (08:40)
[2022-08-01] MEDS: Acetaminophen 325 MG TABLET 650 MG PO (08:45)
--- NOTE | 2022-08-01 10:23 | P.PNPSI_ITS ---
Subjective Subjective Date of Service: 08/01/22 Reason For Visit: Disorganized Interim History: Met with patient; discussed with team Patient reports he is doing well; says he slept well last night that he remains back to his normal self. He has talked with his daughter and has given again verbal permission for team to discuss case with her. Is not sure why she thought he might have taken an overdose other than he was overall dysregulated day. Patient denies any history of SI at all. 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 He also mention outpatient providers and is hoping to get back to an old therapist he has had before and with whom had a strong rapport. Otherwise patient feels that he has good community support. Mental Status Exam Mental Status Exam Narrative: Pt is alert and oriented; behavior is cooperative, friendly and calm; patient is not in distress; dressed in casual attire, scruffy but with adequate hygiene; mood is described as good and affect congruent; eye contact appropriate; Speech is normal rate, volume and prosody and not pressured; no psychomotor agitation/retardation present; thought process is organized and goal directed; Thought content is on tx; otherwise pertinent to relevant topics and without any delusional content, paranoid ideations or grandiosity; denies any SI/HI. There is no evidence of perceptual disturbance. Patients insight and judgment are intact. Diagnostics Vital Signs (24Hr): Vital Signs - 24 hr 07/31/22 18:00 Temperature 98.9 F Pulse Rate 72 Respiratory Rate 18 Blood Pressure 140/91 H Pulse Oximetry 97 Oxygen Delivery Method Room Air BMI result Body Mass Index 25.4 Labs 07/30/22 06:39 07/28/22 22:43 Imaging Radiology Impressions: ITS Impressions Chest X-Ray 07/28/22 23:05 IMPRESSION: No acute cardiopulmonary findings. Medications Medications Current Medications Acetaminophen (Acetaminophen 325 Mg Tablet) 650 mg PO Q6H PRN PRN Reason: Headache/Pain Mild Scale (1-3) Last Admin: 08/01/22 08:45 Dose: 650 mg Al Hydroxide/Mg Hydroxide (Magnesium Hydrox/Alum Hydrox 30 Ml Oral.Susp) 30 ml PO Q6H PRN PRN Reason: Heartburn/Nausea Hydrochlorothiazide (Hydrochlorothiazide 12.5 Mg Tablet) 12.5 mg PO DAILY [facility] Last Admin: 08/01/22 08:40 Dose: 12.5 mg Hydroxyzine HCl (Hydroxyzine Hcl 25 Mg Tablet) 25 mg PO Q6H PRN PRN Reason: Anxiety Lisinopril (Lisinopril 10 Mg Tablet) 10 mg PO DAILY [facility] Last Admin: 08/01/22 08:40 Dose: 10 mg [place] Carbonate ([place] Carbonate Er 300 Mg Tablet.Er) 600 mg PO BEDTIME [facility] Last Admin: 07/31/22 20:02 Dose: 600 mg Magnesium Hydroxide (Milk Of Magnesia 30 Ml Oral.Susp) 30 ml PO DAILY PRN PRN Reason: Constipation Nicotine (Nicotine 21 Mg Patch.Td24) 21 mg TRANSDERMA DAILY PRN PRN Reason: smoking cessation Nicotine Polacrilex (Nicotine Polacrilex 2 Mg Gum) 4 mg BUCCAL Q2H PRN PRN Reason: Nicotine Cravings Quetiapine Fumarate (Quetiapine Fumarate 50 Mg Tablet) 50 mg PO BEDTIME PRN PRN Reason: insomnia Trazodone HCl (Trazodone Hcl 50 Mg Tablet) 50 mg PO BEDTIME MRX1 PRN PRN Reason: Insomnia Allergies Allergies Allergy/AdvReac Type Severity Reaction Status Date / Time No Known Allergies Allergy Verified 07/29/22 06:45 [No Known Allergies*] Assessment & Plan Assessment & Plan (1) Bipolar 1 disorder: Status: Acute Code(s): F31.9 - Bipolar disorder, unspecified (2) Alcohol use disorder, severe, in sustained remission: Status: Acute Code(s): F10.21 - Alcohol dependence, in remission Plan Patient is a 57-year-old male with history of bipolar disorder, alcoholism in sustained remission who presents for after taking too much Seroquel and the face of manic episode. -Patient feels that he is close to his regular self after taking Seroquel; of note he took Seroquel equivalent of 500 mg and amount which for manic episode is not unreasonable; he was prescribed this medication for this type of event; patient denies that this was in any way a suicide attempt or that he has been feeling suicidal. He does agree that he may have said something that worried his daughter while acting erratically and in manic state, though he does not know what. Patient wants to continue with lithium as he said it has been helpful and well tolerated -will get collateral Hospital course: 07/31 patient remains stable, good mood, slept well last night. Denies any SI, feels back to his regular self; gives verbal permission to talk to his daughter and girlfriend 08/01 patient remains stable, good mood, no manic symptoms at all. Patient con tinues to demonstrate good behavioral and impulse control. Will seek collateral to understand patient's daughter possible concern about overdose on Seroquel. However if patient remains stable it is likely he has returned to baseline and what ever happened last week is resolved. Plan: CV Q 15 minute checks Continue lithium 600 mg q.h.s. Currently lithium level subtherapeutic; will recheck the patient said this was home dose that has helped him remained stable Will get the collateral Patient educated on: diagnosis, medication risk/benefits and therapeutic strategies Informed Consent: understands Reason for continued inpatient stay Substantial Risk for: stable for discharge Time Spent With Patient Time: Total time managing care of this patient today ____ minutes.
[2022-08-01 16:54] VITALS: BP 142/81; PULSE 69; TEMP 36.3; O2SAT 98
[2022-08-01] MEDS: Lithium Carbonate ER 300 MG TABLET.ER 600 MG PO (20:06)
[2022-08-02 09:01] VITALS: BP 136/85; PULSE 82; RESP 16; TEMP 36.6; O2SAT 99
[2022-08-02] MEDS: hydroCHLOROthiazide 12.5 MG TABLET PO (09:03)
[2022-08-02] MEDS: lisinopriL 10 MG TABLET PO (09:03)
[2022-08-02] MEDS: Acetaminophen 325 MG TABLET 650 MG PO (09:17)
--- NOTE | 2022-08-02 10:01 | P.DS_ITS ---
DS: Providers Provider Date of Service: 08/02/22 Date of admission: 07/29/22 17:02 Date of discharge: 08/02/22 Primary care physician: Veronique Kowalski MD Attending physician on admission: Hector Farias Attending physician on discharge: Hector Farais DS: Diagnosis Discharge Diagnosis (1) Bipolar 1 disorder: Status: Acute (2) Alcohol use disorder, severe, in sustained remission: Status: Acute DS: Medications Discharge Medications Home Medications: Home Medications Medication Instructions Recorded Confirmed lisinopril 10 1 tab PO DAILY 07/29/22 07/29/22 mg-hydrochlorothiazide 12.5 mg tablet lithium carbonate 300 mg 600 mg PO BEDTIME 07/29/22 07/29/22 tablet,extended release Previous Rx's Medication Instructions Recorded quetiapine 50 mg tablet See Rx Instructions .Route 08/02/22 .COMPLEX PRN insomnia 30 days #60 tabs Mental Status Exam Mental Status Exam Narrative: Pt is alert and oriented; behavior is cooperative, friendly and calm; patient is not in distress; dressed in casual attire, scruffy but with adequate hygiene; mood is described as good and affect congruent; eye contact appropriate; Speech is normal rate, volume and prosody and not pressured; no psychomotor agitation/retardation present; thought process is organized and goal directed; Thought content is on tx; otherwise pertinent to relevant topics and without any delusional content, paranoid ideations or grandiosity; denies any SI/HI. There is no evidence of perceptual disturbance. Patients insight and judgment are intact. Data Data Completed and Pending Completed studies during hospitalization [Text1]: 07/28/22 07/28/22 07/28/22 22:43 22:43 22:43 WBC 13.7 H RBC 4.32 L Hgb 13.1 L Hct 38.9 L MCV 90.0 MCH 30.3 MCHC 33.7 RDW 12.6 Plt Count 260 MPV 8.8 L Immature Gran % (Auto) 0.4 Neut % (Auto) 67.5 Lymph % (Auto) 22.8 [place] % (Auto) 8.3 Eos % (Auto) 0.7 Baso % (Auto) 0.3 Lymph # (Auto) 3.1 [place] # (Auto) 1.1 Eos # (Auto) 0.1 Baso # (Auto) 0.0 Abs Immat Gran (auto) 0.06 H Absolute Neuts (auto) 9.2 H Absolute Nucleated RBC 0.000 Nucleated RBC % (auto) 0.0 Sodium 135 Potassium 3.4 D Chloride 105 Carbon Dioxide 20 L Anion Gap 13 BUN 13 Creatinine 0.94 Estim Creat Clear Calc 88.7 Estimated GFR > 60 Random Glucose 141 H Estimat Average Glucose Hemoglobin A1c % Lactic Acid Calcium 8.7 D Total Bilirubin 0.5 Direct Bilirubin 0.2 AST 13 ALT 13 Alkaline Phosphatase 57 Total Creatine Kinase 226 H Troponin I High Sens 5.9 Total Protein 6.0 L Albumin 4.1 Triglycerides Cholesterol LDL Cholesterol, Calc HDL Cholesterol Lipase 26 Urine Color Urine Appearance Urine pH Ur Specific [place] Urine Protein Urine Glucose (UA) Urine Ketones Urine Blood Urine Nitrite Ur Leukocyte Esterase Salicylates < 5.0 L Urine Opiates Screen Urine Fentanyl Screen Acetaminophen < 17 Ur Barbiturates Screen Ur Phencyclidine Scrn Ur Amphetamines Screen U Benzodiazepines Scrn [place] Urine Cocaine Screen U Marijuana (THC) Screen Ethyl Alcohol COVID-19 ([facility]) COVID-19 [facility] 07/28/22 07/28/22 07/28/22 22:43 22:43 22:43 WBC RBC Hgb Hct MCV MCH MCHC RDW Plt Count MPV Immature Gran % (Auto) Neut % (Auto) Lymph % (Auto) [place] % (Auto) Eos % (Auto) Baso % (Auto) Lymph # (Auto) [place] # (Auto) Eos # (Auto) Baso # (Auto) Abs Immat Gran (auto) Absolute Neuts (auto) Absolute Nucleated RBC Nucleated RBC % (auto) Sodium Potassium Chloride Carbon Dioxide Anion Gap BUN Creatinine Estim Creat Clear Calc Estimated GFR Random Glucose Estimat Average Glucose Hemoglobin A1c % Lactic Acid 0.9 Calcium Total Bilirubin Direct Bilirubin AST ALT Alkaline Phosphatase Total Creatine Kinase Troponin I High Sens Total Protein Albumin Triglycerides Cholesterol LDL Cholesterol, Calc HDL Cholesterol Lipase Urine Color Urine Appearance Urine pH Ur Specific [place] Urine Protein Urine Glucose (UA) Urine Ketones Urine Blood Urine Nitrite Ur Leukocyte Esterase Salicylates Urine Opiates Screen Urine Fentanyl Screen Acetaminophen Ur Barbiturates Screen Ur Phencyclidine Scrn Ur Amphetamines Screen U Benzodiazepines Scrn [place] Urine Cocaine Screen U Marijuana (THC) Screen Ethyl Alcohol < 10 COVID-19 ([place]) Negative COVID-19 [employer] Com See Note 05/05/23 05/05/23 05/05/23 00:37 00:37 08:03 WBC RBC Hgb Hct MCV MCH MCHC RDW Plt Count MPV Immature Gran % (Auto) Neut % (Auto) Lymph % (Auto) [place] % (Auto) Eos % (Auto) Baso % (Auto) Lymph # (Auto) [place] # (Auto) Eos # (Auto) Baso # (Auto) Abs Immat Gran (auto) Absolute Neuts (auto) Absolute Nucleated RBC Nucleated RBC % (auto) Sodium Potassium Chloride Carbon Dioxide Anion Gap BUN Creatinine Estim Creat Clear Calc Estimated GFR Random Glucose Estimat Average Glucose Hemoglobin A1c % Lactic Acid Calcium Total Bilirubin Direct Bilirubin AST ALT Alkaline Phosphatase Total Creatine Kinase Troponin I High Sens Total Protein Albumin Triglycerides Cholesterol LDL Cholesterol, Calc HDL Cholesterol Lipase Urine Color Yellow Urine Appearance Clear Urine pH 6.0 Ur Specific [place] 1.010 Urine Protein Negative Urine Glucose (UA) Negative Urine Ketones Trace Urine Blood Negative Urine Nitrite Negative Ur Leukocyte Esterase Negative Salicylates Urine Opiates Screen Not Detected Urine Fentanyl Screen Not Detected Acetaminophen Ur Barbiturates Screen Not Detected Ur Phencyclidine Scrn Not Detected Ur Amphetamines Screen Not Detected U Benzodiazepines Scrn Not Detected [place] 0.42 L Urine Cocaine Screen Not Detected U Marijuana (THC) Screen POSITIVE H Ethyl Alcohol COVID-19 ([facility]) COVID-19 Clin Com 07/29/22 07/30/22 07/30/22 13:42 06:39 06:39 WBC 11.8 H RBC 4.74 Hgb 14.3 Hct 42.9 MCV 90.5 MCH 30.2 MCHC 33.3 RDW 13.1 Plt Count 292 MPV 8.8 L Immature Gran % (Auto) 0.3 Neut % (Auto) 56.5 Lymph % (Auto) 30.9 [place] % (Auto) 8.4 Eos % (Auto) 3.5 Baso % (Auto) 0.4 Lymph # (Auto) 3.7 [place] # (Auto) 1.0 Eos # (Auto) 0.4 Baso # (Auto) 0.1 Abs Immat Gran (auto) 0.03 Absolute Neuts (auto) 6.7 Absolute Nucleated RBC 0.000 Nucleated RBC % (auto) 0.0 Sodium Potassium Chloride Carbon Dioxide Anion Gap BUN Creatinine Estim Creat Clear Calc Estimated GFR Random Glucose Estimat Average Glucose 114 Hemoglobin A1c % 5.6 Lactic Acid Calcium Total Bilirubin Direct Bilirubin AST ALT Alkaline Phosphatase Total Creatine Kinase 151 Troponin I High Sens Total Protein Albumin Triglycerides Cholesterol LDL Cholesterol, Calc HDL Cholesterol Lipase Urine Color Urine Appearance Urine pH Ur Specific [place] Urine Protein Urine Glucose (UA) Urine Ketones Urine Blood Urine Nitrite Ur Leukocyte Esterase Salicylates Urine Opiates Screen Urine Fentanyl Screen Acetaminophen Ur Barbiturates Screen Ur Phencyclidine Scrn Ur Amphetamines Screen U Benzodiazepines Scrn [place] Urine Cocaine Screen U Marijuana (THC) Screen Ethyl Alcohol COVID-19 ([facility]) COVID-19 Clin Com 07/30/22 08/02/22 06:39 08:10 WBC RBC Hgb Hct MCV MCH MCHC RDW Plt Count MPV Immature Gran % (Auto) Neut % (Auto) Lymph % (Auto) [place] % (Auto) Eos % (Auto) Baso % (Auto) Lymph # (Auto) [place] # (Auto) Eos # (Auto) Baso # (Auto) Abs Immat Gran (auto) Absolute Neuts (auto) Absolute Nucleated RBC Nucleated RBC % (auto) Sodium Potassium Chloride Carbon Dioxide Anion Gap BUN Creatinine Estim Creat Clear Calc Estimated GFR Random Glucose Estimat Average Glucose Hemoglobin A1c % Lactic Acid Calcium Total Bilirubin Direct Bilirubin AST ALT Alkaline Phosphatase Total Creatine Kinase Troponin I High Sens Total Protein Albumin Triglycerides 119 Cholesterol 170 LDL Cholesterol, Calc 106 HDL Cholesterol 41 Lipase Urine Color Urine Appearance Urine pH Ur Specific [place] Urine Protein Urine Glucose (UA) Urine Ketones Urine Blood Urine Nitrite Ur Leukocyte Esterase Salicylates Urine Opiates Screen Urine Fentanyl Screen Acetaminophen Ur Barbiturates Screen Ur Phencyclidine Scrn Ur Amphetamines Screen U Benzodiazepines Scrn [place] Pending Urine Cocaine Screen U Marijuana (THC) Screen Ethyl Alcohol COVID-19 ([facility]) COVID-19 Clin Com Imaging Diagnostic Imaging Impressions Chest X-Ray 07/28/22 23:05 IMPRESSION: No acute cardiopulmonary findings. DS: Summary Hospital Course Hospital Course: Patient is a 57-year-old male with history of bipolar disorder, alcoholism in sustained remission who presents for after taking too much Seroquel and the face of manic episode. On admission, pt was calm and organized in speech and behavior and w/out any manic symptoms. He said he was now, finally feeling back to his regular self. Pt explained that he'd been restarted on [place] a few weeks ago but it was not until he took the Seroquel (equivalent of 500 mg; this med originally prescribed for patient for breakthrough manic symptoms) that the nelson finally broke. Pt says this was in no way an suicide attempt and he denied any hx of SI. Patient daughter provided collateral who confirmed she was not concerned seroquel intake was an intentional overdose but just wanted him to come to hospital due to nelson getting ou of control. Pt remained in good behavioral and impulse control throughout time on unit; he was appropriate with peers and staff, eating and sleeping well, w/out any manic symptoms and remained feeling back to his regular self. Litium level subtherapeutic however he's remained stable at current dose for several years. On day of discharge patient remained in good mood, having been sleeping well and feeling ready to get back home. He is at baseline, not an imminent risk for harm self or others and appropriate for discharge. Time spent discussing smoking cessation with patient: 3 to 10 minutes Status at Discharge Functional status at discharge: independent ambulation Overall status at discharge: patient is back to baseline Time Spent with Patient Time attestation: Total time managing care of this patient today ____ minutes. Time spent: Less than 30 minutes Discharge Plan Discharge Anticipated Discharge Date/Time: 08/02/22 11:30 Patient Disposition: Home, Self-Care Discharge Diagnosis: Bipolar disorder, type 1, recurrent, severe in full remission Referrals: [facility] Lily Burt [Other] - 08/02/22 2:30 pm (Telehealth) [facility] John Gong [Other] - 08/10/22 2:00 pm (Telehealth) Veronique Hope MD [Primary Care Provider] - 1 Week (office will reach out to pt. for d/c f/u appointment.) Discharge Medications: New quetiapine 50 mg Tablet See Rx Instructions .ROUTE .COMPLEX PRN (Reason: insomnia) 30 Days Qty: 60 0RF Rx Instructions: take 1-2 tabs as needed for insomnia Continued lithium carbonate 300 mg tablet extended release 600 mg PO BEDTIME lisinopril-hydrochlorothiazide 10-12.5 mg tablet 1 tab PO DAILY Discharge Orders: Discharge Order (Routine); Ordered 08/02/22 Ordered By: Hector Farias Diet: Regular diet Activity on Discharge: As tolerated Stand Alone Forms: Patient Portal Discharge page Care Plan Goals: Maintain mood and safe behaviors Take medications as prescribed Continue to pursue sobriety Practice coping skills Continue with outpatient providers and reach out to them as needed Health Concerns: Mood stability and behaviors Plan of Treatment: Follow up with your PCP, psychiatric provider and other outpatient providers regarding above concerns Take medications as prescribed Assessment: Risk assessment at time of discharge:? Patient was interviewed prior to discharge and found to be fully oriented and without any SI or HI. Patient has insight and demonstrates good judgment in terms of wanting to pursue treatment. Patient is not in imminent risk of harm to self or others and has a safety plan that includes presenting to the closest ER or calling 911 if feeling unsafe.? Patient has been observed closely by nursing and unit staff throughout admission; patient has not engaged in any behaviors that suggest dangerousness to self or others and has demonstrated appropriate behaviors and impulse control Discharge Date/Time: 08/02/22 11:15
[2022-08-02 11:05] LABS: Lithium 0.41 mmol/L (0.60-1.20)
== END 2022-08-02 11:15 | disposition home or self-care (01) | DRG 753 ==
LOC: HO.ED 07-29 06:47 → HO.PM5 07-29 17:33
PROVIDERS: Emergency Medicine; Physician Assistant Medical; Admitting Provider Psychiatry & Neurology Psychiatry; Emergency Provider Student in an Organized Health Care Education/Training Program; PCP Internal Medicine; Visit Provider Psychiatry & Neurology Psychiatry
DX: F31.9 Bipolar disorder, unspecified (principal); F10.21 Alcohol dependence, in remission; Z20.822 Contact with and (suspected) exposure to COVID-19; T43.591A Poisoning by other antipsychotics and neuroleptics, accidental (unintentional), initial encounter
CPT/HCPCS: 36415; 71046; 80048; 80061; 80076; 80143; 80178; 80179; 80307; 81003; 82550; 83036; 83605; 83690; 84484; 85025; 87635; 93005; 99285; S9485

== ENCOUNTER 2022-09-12 12:16 | Outpatient (REF) | payer BC, SELFPAY ==
[2022-09-12 14:02] LABS: Basophils Percent Auto 0.3 % (0-2); Eosinophils Absolute Auto 0.1 X10*3/uL (0.0-0.4); Eosinophils Percent Auto 1.1 % (0-4); Hematocrit 43.3 % (42.0-52.0); Hemoglobin 14.1 g/dl (14.0-18.0); Imm Gran Abs Auto 0.06 X10*3/uL (0.00-0.03); Imm Gran Pct Auto 0.5 % (0.0-0.4); Lymphocytes Percent Auto 24.3 % (20-40); MANUAL DIFF FLAG NO; Mean Corpuscular HGB Conc 32.6 g/dl (31.0-36.0); Mean Corpuscular Hemoglobin 29.8 pg (27.0-33.0); Mean Corpuscular Volume 91.5 fL (80.0-98.0); Mean Platelet Volume 9.1 fL (9.4-12.4); Monocytes Percent Auto 7.7 % (2-11); Neutrophils Absolute Auto 8.1 x10*3/uL (2.0-8.3); Neutrophils Percent Auto 66.1 % (45-73); Platelet Count 323 X10*3/uL (160-400); Red Blood Count 4.73 X10*6/uL (4.60-5.80); White Blood Count 12.3 X10*3/uL (4.8-10.8)
[2022-09-12 19:18] LABS: Lithium 0.56 mmol/L (0.60-1.20)
[2022-09-12 19:45] LABS: Free T4 (Free Thyroxine) 0.98 ng/dL (0.71-1.85)
== END 2022-09-12 12:17 | disposition home or self-care (01) ==
LOC: HO.HMGCLR 12:16
PROVIDERS: PCP Internal Medicine; Visit Provider Clinical Nurse Specialist Psychiatric/Mental Health, Child & Adolescent
DX: Z79.899 Other long term (current) drug therapy (principal)
CPT/HCPCS: 36415; 80178; 84439; 84443; 85025

== ENCOUNTER 2022-11-09 09:49 | Outpatient (REF) | payer BC, SELFPAY ==
[2022-11-09 13:03] LABS: MANUAL DIFF FLAG NO
[2022-11-09 13:21] LABS: Basophils Absolute Auto 0.1 X10*3/uL (0.0-0.2); Basophils Percent Auto 0.8 % (0-2); Eosinophils Absolute Auto 0.4 X10*3/uL (0.0-0.4); Eosinophils Percent Auto 4.2 % (0-4); Hemoglobin 13.5 g/dl (14.0-18.0); Imm Gran Abs Auto 0.05 X10*3/uL (0.00-0.03); Imm Gran Pct Auto 0.5 % (0.0-0.4); Lymphocytes Absolute Auto 2.8 X10*3/uL (1.2-4.9); Lymphocytes Percent Auto 28.6 % (20-40); Mean Corpuscular HGB Conc 32.1 g/dl (31.0-36.0); Mean Corpuscular Hemoglobin 30.7 pg (27.0-33.0); Mean Corpuscular Volume 95.5 fL (80.0-98.0); Mean Platelet Volume 9.3 fL (9.4-12.4); Monocytes Absolute Auto 0.8 X10*3/uL (0.1-1.2); Monocytes Percent Auto 7.7 % (2-11); Neutrophils Absolute Auto 5.8 x10*3/uL (2.0-8.3); Neutrophils Percent Auto 58.2 % (45-73); Platelet Count 296 X10*3/uL (160-400); Red Cell Distribution Width 12.7 % (11.0-16.0); White Blood Count 9.9 X10*3/uL (4.8-10.8)
[2022-11-09 13:37] LABS: Lithium 0.65 mmol/L (0.60-1.20)
[2022-11-09 13:50] LABS: Free T4 (Free Thyroxine) 0.96 ng/dL (0.71-1.85); TSH reflex Free T4 1.63 uIU/mL (0.32-4.0)
== END 2022-11-09 09:50 | disposition home or self-care (01) ==
LOC: HO.HMGCLR 09:49
PROVIDERS: PCP Internal Medicine; Visit Provider Clinical Nurse Specialist Psychiatric/Mental Health, Child & Adolescent
DX: Z79.899 Other long term (current) drug therapy (principal)
CPT/HCPCS: 36415; 80178; 84439; 84443; 85025

== ENCOUNTER 2023-01-09 11:41 | Outpatient (REF) | payer BC, SELFPAY ==
[2023-01-09 13:09] LABS: MANUAL DIFF FLAG NO
[2023-01-09 13:25] LABS: Basophils Absolute Auto 0.1 X10*3/uL (0.0-0.2); Basophils Percent Auto 0.4 % (0-2); Eosinophils Absolute Auto 0.3 X10*3/uL (0.0-0.4); Eosinophils Percent Auto 2.6 % (0-4); Hematocrit 42.9 % (42.0-52.0); Hemoglobin 14.1 g/dl (14.0-18.0); Imm Gran Abs Auto 0.05 X10*3/uL (0.00-0.03); Imm Gran Pct Auto 0.4 % (0.0-0.4); Lymphocytes Absolute Auto 2.4 X10*3/uL (1.2-4.9); Lymphocytes Percent Auto 18.2 % (20-40); Mean Corpuscular HGB Conc 32.9 g/dl (31.0-36.0); Mean Corpuscular Hemoglobin 30.8 pg (27.0-33.0); Mean Corpuscular Volume 93.7 fL (80.0-98.0); Mean Platelet Volume 9.4 fL (9.4-12.4); Monocytes Absolute Auto 0.9 X10*3/uL (0.1-1.2); Monocytes Percent Auto 6.8 % (2-11); Neutrophils Absolute Auto 9.4 x10*3/uL (2.0-8.3); Neutrophils Percent Auto 71.6 % (45-73); Platelet Count 322 X10*3/uL (160-400); Red Blood Count 4.58 X10*6/uL (4.60-5.80); Red Cell Distribution Width 12.5 % (11.0-16.0); White Blood Count 13.1 X10*3/uL (4.8-10.8)
[2023-01-09 13:58] LABS: TSH reflex Free T4 1.46 uIU/mL (0.32-4.0)
[2023-01-09 17:17] LABS: Lithium 0.64 mmol/L (0.60-1.20)
== END 2023-01-09 11:42 | disposition home or self-care (01) ==
LOC: HO.HMGCLR 11:41
PROVIDERS: PCP Internal Medicine; Visit Provider Clinical Nurse Specialist Psychiatric/Mental Health, Child & Adolescent
DX: Z79.899 Other long term (current) drug therapy (principal)
CPT/HCPCS: 36415; 80178; 84439; 84443; 85025

== ENCOUNTER 2023-03-29 08:54 | Outpatient (REF) | payer BC, SELFPAY ==
[2023-03-29 11:54] LABS: Baso%MD 0.4 %; Eos%MD 3.8 %; Hematocrit 44.5 % (42.0-52.0); Hemoglobin 14.6 g/dl (14.0-18.0); IG%MD 0.4 %; Lymph%MD 24.5 %; Mean Corpuscular HGB Conc 32.8 g/dl (31.0-36.0); Mean Corpuscular Hemoglobin 30.2 pg (27.0-33.0); Mean Corpuscular Volume 92.1 fL (80.0-98.0); Mean Platelet Volume 9.5 fL (9.4-12.4); Mono%MD 7.8 %; Neut%MD 63.1 %; Platelet Count 311 X10*3/uL (160-400); Red Blood Count 4.83 X10*6/uL (4.60-5.80); Red Cell Distribution Width 12.4 % (11.0-16.0); White Blood Count 11.2 X10*3/uL (4.8-10.8)
[2023-03-29 12:47] LABS: Eosinophils Absolute Manual 0.3 X10*3/uL (0.0-0.4); Eosinophils Percent Manual 3 % (0-4); Lymphocytes Absolute Manual 1.8 X10*3/uL (1.2-4.9); Lymphocytes Percent Manual 16 % (20-40); Monocytes Absolute Manual 0.9 X10*3/uL (0.1-1.2); Monocytes Percent Manual 8 % (2-11); Neutrophils Percent Manual 73 % (45-73)
[2023-03-29 12:48] LABS: Band Neutrophils Percent 0 % (3-5); Neutrophils Absolute Manual 8.2 X10*3/uL (2.0-8.3); Platelet Estimate NORMAL (NORMAL); Platelet Morphology Comment NORMAL; RBC Morphology NORMAL
[2023-03-29 13:15] LABS: TSH reflex Free T4 2.11 uIU/mL (0.32-4.0)
[2023-03-29 14:20] LABS: Lithium 0.72 mmol/L (0.60-1.20)
== END 2023-03-29 08:55 | disposition home or self-care (01) ==
LOC: HO.HMGCLR 08:54
PROVIDERS: PCP Internal Medicine; Visit Provider Clinical Nurse Specialist Psychiatric/Mental Health, Child & Adolescent
DX: Z79.899 Other long term (current) drug therapy (principal)
CPT/HCPCS: 36415; 80178; 84439; 84443; 85007; 85027

== ENCOUNTER 2023-06-23 14:50 | Outpatient (REF) | payer BC, SELFPAY ==
[2023-06-23 16:45] LABS: MANUAL DIFF FLAG NO
[2023-06-23 17:23] LABS: Basophils Absolute Auto 0.1 X10*3/uL (0.0-0.2); Basophils Percent Auto 0.4 % (0-2); Eosinophils Absolute Auto 0.3 X10*3/uL (0.0-0.4); Eosinophils Percent Auto 2.8 % (0-4); Hematocrit 42.6 % (42.0-52.0); Hemoglobin 14.1 g/dl (14.0-18.0); Imm Gran Abs Auto 0.06 X10*3/uL (0.00-0.03); Imm Gran Pct Auto 0.5 % (0.0-0.4); Lymphocytes Absolute Auto 2.8 X10*3/uL (1.2-4.9); Lymphocytes Percent Auto 24.5 % (20-40); Mean Corpuscular HGB Conc 33.1 g/dl (31.0-36.0); Mean Corpuscular Volume 90.6 fL (80.0-98.0); Mean Platelet Volume 9.8 fL (9.4-12.4); Monocytes Absolute Auto 0.9 X10*3/uL (0.1-1.2); Monocytes Percent Auto 8.3 % (2-11); Neutrophils Absolute Auto 7.2 x10*3/uL (2.0-8.3); Neutrophils Percent Auto 63.5 % (45-73); Platelet Count 297 X10*3/uL (160-400); Red Cell Distribution Width 12.5 % (11.0-16.0); White Blood Count 11.4 X10*3/uL (4.8-10.8)
[2023-06-23 17:24] LABS: Free T4 (Free Thyroxine) 0.95 ng/dL (0.71-1.85); TSH reflex Free T4 1.15 uIU/mL (0.32-4.0)
[2023-06-23 18:20] LABS: Lithium 0.66 mmol/L (0.60-1.20)
== END 2023-06-23 14:51 | disposition home or self-care (01) ==
LOC: HO.HMGCLR 14:50
PROVIDERS: PCP Internal Medicine; Visit Provider Clinical Nurse Specialist Psychiatric/Mental Health, Child & Adolescent
DX: Z79.899 Other long term (current) drug therapy (principal)
CPT/HCPCS: 36415; 80178; 84439; 84443; 85025

== ENCOUNTER 2023-10-09 08:36 | Outpatient (REF) | payer BC, SELFPAY ==
[2023-10-09 10:06] LABS: MANUAL DIFF FLAG NO
[2023-10-09 10:17] LABS: Basophils Absolute Auto 0.1 X10*3/uL (0.0-0.2); Basophils Percent Auto 0.7 % (0-2); Eosinophils Absolute Auto 0.3 X10*3/uL (0.0-0.4); Hematocrit 42.8 % (42.0-52.0); Hemoglobin 14.4 g/dl (14.0-18.0); Imm Gran Abs Auto 0.04 X10*3/uL (0.00-0.03); Imm Gran Pct Auto 0.4 % (0.0-0.4); Lymphocytes Absolute Auto 2.3 X10*3/uL (1.2-4.9); Lymphocytes Percent Auto 24.5 % (20-40); Mean Corpuscular HGB Conc 33.6 g/dl (31.0-36.0); Mean Corpuscular Hemoglobin 30.8 pg (27.0-33.0); Mean Corpuscular Volume 91.5 fL (80.0-98.0); Mean Platelet Volume 9.6 fL (9.4-12.4); Monocytes Absolute Auto 0.8 X10*3/uL (0.1-1.2); Monocytes Percent Auto 8.2 % (2-11); Neutrophils Percent Auto 63.2 % (45-73); Platelet Count 348 X10*3/uL (160-400); Red Blood Count 4.68 X10*6/uL (4.60-5.80); Red Cell Distribution Width 12.6 % (11.0-16.0); White Blood Count 9.6 X10*3/uL (4.8-10.8)
[2023-10-09 10:39] LABS: Anion Gap 12 (12-20); Blood Urea Nitrogen 13 mg/dL (9-16); Calcium 9.8 mg/dL (8.4-10.2); Carbon Dioxide 25 mmol/L (22-29); Chloride 106 mmol/L (96-108); Estimated Glomerular Filt Rate > 60; Glucose Fasting 95 mg/dL (60-99); Potassium 3.9 mmol/L (3.3-5.1); Sodium 139 mmol/L (135-145)
[2023-10-09 10:57] LABS: Thyroid Stimulating Hormone 1.57 uIU/mL (0.32-4.0)
== END 2023-10-09 08:37 | disposition home or self-care (01) ==
LOC: HO.HMGCLR 08:36
PROVIDERS: PCP Internal Medicine; Visit Provider Clinical Nurse Specialist Psychiatric/Mental Health, Child & Adolescent
DX: Z79.899 Other long term (current) drug therapy (principal)
CPT/HCPCS: 36415; 80048; 80178; 84439; 84443; 85025

== ENCOUNTER 2024-01-02 08:10 | Outpatient (REF) | payer BC, SELFPAY ==
[2024-01-02 10:03] LABS: MANUAL DIFF FLAG NO
[2024-01-02 10:08] LABS: Basophils Absolute Auto 0.1 X10*3/uL (0.0-0.2); Eosinophils Absolute Auto 0.4 X10*3/uL (0.0-0.4); Eosinophils Percent Auto 4.6 % (0-4); Hematocrit 42.8 % (42.0-52.0); Hemoglobin 14.3 g/dl (14.0-18.0); Imm Gran Abs Auto 0.05 X10*3/uL (0.00-0.03); Imm Gran Pct Auto 0.6 % (0.0-0.4); Lymphocytes Absolute Auto 1.7 X10*3/uL (1.2-4.9); Lymphocytes Percent Auto 20.1 % (20-40); Mean Corpuscular HGB Conc 33.4 g/dl (31.0-36.0); Mean Corpuscular Hemoglobin 30.2 pg (27.0-33.0); Mean Corpuscular Volume 90.5 fL (80.0-98.0); Mean Platelet Volume 9.1 fL (9.4-12.4); Monocytes Absolute Auto 1.1 X10*3/uL (0.1-1.2); Monocytes Percent Auto 13.4 % (2-11); Neutrophils Percent Auto 60.3 % (45-73); Platelet Count 273 X10*3/uL (160-400); Red Blood Count 4.73 X10*6/uL (4.60-5.80); Red Cell Distribution Width 12.8 % (11.0-16.0); White Blood Count 8.3 X10*3/uL (4.8-10.8)
[2024-01-02 10:36] LABS: Anion Gap 13 (12-20); Blood Urea Nitrogen 11 mg/dL (9-16); Calcium 9.6 mg/dL (8.4-10.2); Carbon Dioxide 25 mmol/L (22-29); Chloride 106 mmol/L (96-108); Estimated Glomerular Filt Rate > 60; Glucose Fasting 101 mg/dL (60-99); Sodium 140 mmol/L (135-145)
[2024-01-02 10:43] LABS: Free T4 (Free Thyroxine) 0.93 ng/dL (0.71-1.85); Thyroid Stimulating Hormone 2.29 uIU/mL (0.32-4.0)
[2024-01-02 10:47] LABS: Lithium 0.65 mmol/L (0.60-1.20)
== END 2024-01-02 08:11 | disposition home or self-care (01) ==
LOC: HO.HMGCLR 08:10
PROVIDERS: PCP Internal Medicine; Visit Provider Clinical Nurse Specialist Psychiatric/Mental Health, Child & Adolescent
DX: Z79.899 Other long term (current) drug therapy (principal)
CPT/HCPCS: 36415; 80048; 80178; 84439; 84443; 85025

== ENCOUNTER 2024-03-29 10:45 | Outpatient (REF) | payer BC, SELFPAY ==
[2024-03-29 12:56] LABS: MANUAL DIFF FLAG NO
[2024-03-29 13:10] LABS: Basophils Absolute Auto 0.1 X10*3/uL (0.0-0.2); Basophils Percent Auto 0.4 % (0-2); Eosinophils Absolute Auto 0.2 X10*3/uL (0.0-0.4); Hematocrit 44.3 % (42.0-52.0); Hemoglobin 14.8 g/dl (14.0-18.0); Imm Gran Abs Auto 0.12 X10*3/uL (0.00-0.03); Imm Gran Pct Auto 0.6 % (0.0-0.4); Lymphocytes Absolute Auto 2.7 X10*3/uL (1.2-4.9); Lymphocytes Percent Auto 13.6 % (20-40); Mean Corpuscular HGB Conc 33.4 g/dl (31.0-36.0); Mean Corpuscular Hemoglobin 30.4 pg (27.0-33.0); Mean Platelet Volume 9.1 fL (9.4-12.4); Monocytes Absolute Auto 1.4 X10*3/uL (0.1-1.2); Monocytes Percent Auto 6.9 % (2-11); Neutrophils Absolute Auto 15.4 x10*3/uL (2.0-8.3); Neutrophils Percent Auto 77.5 % (45-73); Platelet Count 383 X10*3/uL (160-400); Red Blood Count 4.87 X10*6/uL (4.60-5.80); Red Cell Distribution Width 12.3 % (11.0-16.0); White Blood Count 19.9 X10*3/uL (4.8-10.8)
[2024-03-29 13:32] LABS: Anion Gap 12 (12-20); Blood Urea Nitrogen 9 mg/dL (9-16); Calcium 9.5 mg/dL (8.4-10.2); Carbon Dioxide 25 mmol/L (22-29); Chloride 104 mmol/L (96-108); Estimated Glomerular Filt Rate > 60; Glucose Fasting 104 mg/dL (60-99); Lithium 0.72 mmol/L (0.60-1.20); Sodium 137 mmol/L (135-145)
[2024-03-29 14:08] LABS: Free T4 (Free Thyroxine) 0.96 ng/dL (0.71-1.85); Thyroid Stimulating Hormone 1.46 uIU/mL (0.32-4.0)
== END 2024-03-29 10:46 | disposition home or self-care (01) ==
LOC: HO.HMGCLR 10:45
PROVIDERS: PCP Internal Medicine; Visit Provider Clinical Nurse Specialist Psychiatric/Mental Health, Child & Adolescent
DX: Z79.899 Other long term (current) drug therapy (principal)
CPT/HCPCS: 36415; 80048; 80178; 84439; 84443; 85025

== ENCOUNTER 2024-06-20 08:34 | Outpatient (REF) | payer BC, SELFPAY ==
[2024-06-20 10:00] LABS: MANUAL DIFF FLAG NO
[2024-06-20 10:03] LABS: Basophils Absolute Auto 0.1 X10*3/uL (0.0-0.2); Basophils Percent Auto 0.6 % (0-2); Eosinophils Absolute Auto 0.3 X10*3/uL (0.0-0.4); Eosinophils Percent Auto 2.9 % (0-4); Hematocrit 42.8 % (42.0-52.0); Hemoglobin 14.4 g/dl (14.0-18.0); Imm Gran Abs Auto 0.04 X10*3/uL (0.00-0.03); Imm Gran Pct Auto 0.4 % (0.0-0.4); Lymphocytes Absolute Auto 2.4 X10*3/uL (1.2-4.9); Lymphocytes Percent Auto 21.7 % (20-40); Mean Corpuscular HGB Conc 33.6 g/dl (31.0-36.0); Mean Corpuscular Hemoglobin 30.3 pg (27.0-33.0); Mean Corpuscular Volume 89.9 fL (80.0-98.0); Mean Platelet Volume 9.3 fL (9.4-12.4); Monocytes Absolute Auto 0.8 X10*3/uL (0.1-1.2); Monocytes Percent Auto 7.3 % (2-11); Neutrophils Absolute Auto 7.3 x10*3/uL (2.0-8.3); Neutrophils Percent Auto 67.1 % (45-73); Platelet Count 321 X10*3/uL (160-400); Red Blood Count 4.76 X10*6/uL (4.60-5.80); White Blood Count 10.8 X10*3/uL (4.8-10.8)
[2024-06-20 10:53] LABS: Lithium 0.64 mmol/L (0.60-1.20)
[2024-06-20 10:54] LABS: Anion Gap 8 (12-20); Blood Urea Nitrogen 16 mg/dL (9-16); Calcium 9.4 mg/dL (8.4-10.2); Carbon Dioxide 25 mmol/L (22-29); Chloride 110 mmol/L (96-108); Estimated Glomerular Filt Rate > 60; Free T4 (Free Thyroxine) 0.89 ng/dL (0.71-1.85); Glucose Fasting 107 mg/dL (60-99); Potassium 4.2 mmol/L (3.3-5.1); Sodium 139 mmol/L (135-145); Thyroid Stimulating Hormone 1.14 uIU/mL (0.32-4.0)
== END 2024-06-20 08:35 | disposition home or self-care (01) ==
LOC: HO.HMGCLR 08:34
PROVIDERS: Clinical Nurse Specialist Psychiatric/Mental Health, Child & Adolescent; PCP Internal Medicine; Visit Provider Surgery
DX: Z79.899 Other long term (current) drug therapy (principal)
CPT/HCPCS: 36415; 80048; 80178; 84439; 84443; 85025

== ENCOUNTER 2024-09-23 08:06 | Outpatient (REF) | payer BC, SELFPAY ==
--- OUTSIDE RECORDS SUMMARY | 2024-09-23 08:11 | XMS_ITS | Patient Health Record ---
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 Name Role Phone Veronique Bernal M.D Primary Care Provider Unavailable AbiliogerberMargi Unavailable [phone] Allergies No Known Allergies Reason For Referral No Information Medications Medication SIG (Take, Route, Frequency, Duration) Notes Start Date End Date Status Medrol 4 MG as directed Orally 05/25/2021 Active Lisinopril Active Lisinopril-hydroCHLOROthia zide 10-12.5 MG 1 tablet Orally Once a day; Duration: 30 day(s) Active [place] Carbonate ER 300 MG 1 tablet at bedtime Orally Once a day; Duration: 30 day(s) Active Calamus Carbonate Ac tive Social History Tobacco Use: Social History Observation Description Date Details (start date - stop date) Never Smoker NA - NA Tobacco Use/Smoking Question Answer Notes Are you a: nonsmoker Additional Findings: Tobacco Non-User Current no n-smoker Alcohol Screen Question Answer Notes Did you have a drink containing alcohol in the p ast year? No Points 0 Interpretation Negative Tobacco use other than smoking: Question Answer Notes Are you an other tobacco user? No Plan Of Treatment Pending Test Test Name Order Date X ray : Foot, right 3V 05/25/2021 X ray : Foot, right 3V 08/17/2021 Insurance Providers Payer Name Payer Address Payer Phone Subscriber Number Group Number Insured Name Patient Relationship to Insured Coverage Start Date Coverage End Date [employer] [place] [address] [place] [address] [id number] Osorio Harrell Self - patient is the insured Medical (General) History Medical History History ICD Code Depression High blood pressure Psychiatric disorder Joint implants/screws Surgical History Surgery Date(Month/Year) cervical fusion 2006, 2008, 2009 discectomy hernia shoulder surgery 2009 carpal tunnel surgery 2008
[2024-09-23 10:04] LABS: MANUAL DIFF FLAG NO
[2024-09-23 10:32] LABS: Basophils Percent Auto 0.4 % (0-2); Eosinophils Absolute Auto 0.4 X10*3/uL (0.0-0.4); Eosinophils Percent Auto 3.3 % (0-4); Hematocrit 42.9 % (42.0-52.0); Hemoglobin 13.9 g/dl (14.0-18.0); Imm Gran Abs Auto 0.04 X10*3/uL (0.00-0.03); Imm Gran Pct Auto 0.4 % (0.0-0.4); Lymphocytes Absolute Auto 2.2 X10*3/uL (1.2-4.9); Lymphocytes Percent Auto 19.8 % (20-40); Mean Corpuscular HGB Conc 32.4 g/dl (31.0-36.0); Mean Corpuscular Hemoglobin 30.2 pg (27.0-33.0); Mean Corpuscular Volume 93.3 fL (80.0-98.0); Mean Platelet Volume 9.4 fL (9.4-12.4); Monocytes Absolute Auto 0.9 X10*3/uL (0.1-1.2); Monocytes Percent Auto 7.9 % (2-11); Neutrophils Absolute Auto 7.4 x10*3/uL (2.0-8.3); Neutrophils Percent Auto 68.2 % (45-73); Platelet Count 301 X10*3/uL (160-400); Red Cell Distribution Width 12.9 % (11.0-16.0); White Blood Count 10.9 X10*3/uL (4.8-10.8)
[2024-09-23 10:54] LABS: Lithium 0.67 mmol/L (0.60-1.20)
[2024-09-23 10:58] LABS: Anion Gap 9 (12-20); Blood Urea Nitrogen 14 mg/dL (9-16); Calcium 9.5 mg/dL (8.4-10.2); Carbon Dioxide 29 mmol/L (22-29); Chloride 106 mmol/L (96-108); Estimated Glomerular Filt Rate > 60; Glucose Fasting 106 mg/dL (60-99); Potassium 4.3 mmol/L (3.3-5.1); Sodium 140 mmol/L (135-145)
[2024-09-23 11:02] LABS: Free T4 (Free Thyroxine) 0.81 ng/dL (0.71-1.85); Thyroid Stimulating Hormone 1.47 uIU/mL (0.32-4.0)
== END 2024-09-23 08:07 | disposition home or self-care (01) ==
LOC: HO.HMGCLR 08:06
PROVIDERS: Visit Provider Clinical Nurse Specialist Psychiatric/Mental Health, Child & Adolescent
DX: Z79.899 Other long term (current) drug therapy (principal)
CPT/HCPCS: 36415; 80048; 80178; 84439; 84443; 85025

== ENCOUNTER 2024-12-20 07:20 | Outpatient (REF) | payer BC, SELFPAY ==
--- OUTSIDE RECORDS SUMMARY | 2024-12-20 07:24 | XMS_ITS | Patient Health Record ---
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 Name Role Phone Veronique Bernal M.D Primary Care Provider Unavailable AbiliogerberMargi Unavailable [phone] Allergies No Known Allergies Reason For Referral No Information Medications Medication SIG (Take, Route, Frequency, Duration) Notes Start Date End Date Status Medrol 4 MG as directed Orally 05/25/2021 Active Lisinopril Active Lisinopril-hydroCHLOROthia zide 10-12.5 MG 1 tablet Orally Once a day; Duration: 30 day(s) Active [place] Carbonate ER 300 MG 1 tablet at bedtime Orally Once a day; Duration: 30 day(s) Active [place] Carbonate Ac tive Social History Tobacco Use: [...] Start Date Coverage End Date [employer] [place] [address] [place] [address] [phone] [id number] Osorio Harrell Self - patient is the insured Medical (General) History Medical History History ICD Code Depression High blood pressure Psychiatric disorder Joint implants/screws Surgical History Surgery Date(Month/Year) cervical fusion 2006, 2008, 2009 discectomy hernia shoulder surgery 2009 carpal tunnel surgery 2008
--- OUTSIDE RECORDS SUMMARY | 2024-12-20 07:24 | XMS_ITS | Clinical Summary ---
Author Organization [facility] Address [address] [place] [address] Care Team Providers Care Veterans Contact Representative Name Role Phone Unavailable Primary Care Provider Unavailabl e Social History Tobacco Use Types Packs/Day Years Used Date Smoking Tobacco: Never Assessed Sex and Gender Information Value Date Recorded Sex Assigned at Not on file Gender Identity Not on file Sexual Orientation Not on file Plan of Treatment Not on file
--- OUTSIDE RECORDS SUMMARY | 2024-12-20 07:24 | XMS_ITS ---
Author Name [facility] Organization Unknown Care Team Organization Name Specialty Phone Email Start Date End [facility] te [facility] 02/09/2024
[2024-12-20 10:10] LABS: MANUAL DIFF FLAG NO
[2024-12-20 10:34] LABS: Hematocrit 43.4 % (42.0-52.0); Hemoglobin 14.1 g/dl (14.0-18.0); Imm Gran Abs Auto 0.03 X10*3/uL (0.00-0.03); Imm Gran Pct Auto 0.3 % (0.0-0.4); Lymphocytes Absolute Auto 2.4 X10*3/uL (1.2-4.9); Mean Corpuscular HGB Conc 32.5 g/dl (31.0-36.0); Mean Corpuscular Hemoglobin 30.2 pg (27.0-33.0); Mean Corpuscular Volume 92.9 fL (80.0-98.0); NRBC Abs Auto 0.000 X10*3/uL (0.0-0.012); NRBC Pct Auto 0.0 /100WBC (0.0-0.2); Platelet Count 294 X10*3/uL (160-400); Red Blood Count 4.67 X10*6/uL (4.60-5.80); White Blood Count 9.0 X10*3/uL (4.8-10.8)
[2024-12-20 11:16] LABS: Lithium 0.68 mmol/L (0.60-1.20)
[2024-12-20 11:27] LABS: Anion Gap 8 (12-20); Blood Urea Nitrogen 11 mg/dL (9-16); Calcium 9.6 mg/dL (8.4-10.2); Carbon Dioxide 29 mmol/L (22-29); Chloride 107 mmol/L (96-108); Estimated Glomerular Filt Rate > 60; Potassium 4.4 mmol/L (3.3-5.1); Sodium 140 mmol/L (135-145); Thyroid Stimulating Hormone 1.90 uIU/mL (0.32-4.0)
== END 2024-12-20 07:21 | disposition home or self-care (01) ==
LOC: HO.HMGCLR 07:20
PROVIDERS: PCP Internal Medicine; Visit Provider Nurse Practitioner Psychiatric/Mental Health
DX: Z79.899 Other long term (current) drug therapy (principal)
CPT/HCPCS: 36415; 80048; 80178; 84443; 85025